=== PATIENT | male | born 1960 | race Caucasian/White ===

== ENCOUNTER 2018-04-04 16:28 | Emergency (ER) | payer SELFPAY ==
[2018-04-04] MEDS ORDERED: LORazepam 1 MG Tab PO ONE (16:34)
--- NOTE | 2018-04-04 16:46 | EDM.PDOC ---
ED HPI GENERAL MEDICAL PROBLEM - General Chief Complaint: Behavioral/Psych Stated Complaint: SUICIDIAL Time Seen by Provider: 04/04/18 16:31 - History of Present Illness INITIAL COMMENTS - FREE TEXT/NARRATIVE: HISTORY AND PHYSICAL: History of present illness: Patient 57-year-old white male with history of bipolar disorder presents with a concern of depressive episode he states she's felt suicidal he is agreeable to help he is here voluntarily denies any specific plan he denies any ingestion or any other concerns. Review of systems: As per history of present illness and below otherwise all systems reviewed and negative. Past medical history: As per history of present illness and as reviewed below otherwise noncontributory. Surgical history: As per history of present illness and as reviewed below otherwise noncontributory. Social history: No reported history of drug or alcohol abuse. Family history: As per history of present illness and as reviewed below otherwise noncontributory. Physical exam: HEENT: Atraumatic, normocephalic, pupils reactive, negative for conjunctival pallor or scleral icterus, mucous membranes moist, throat clear, neck supple, nontender, trachea midline. Lungs: Clear to auscultation, breath sounds equal bilaterally, chest nontender. Heart: S1S2, regular, negative for clicks, rubs, or JVD. Abdomen: Soft, nondistended, nontender. Negative for masses or hepatosplenomegaly. Negative for costovertebral tenderness. Pelvis: Stable nontender. Genitourinary: Deferred. Rectal: Deferred. Extremities: Atraumatic, negative for cords or calf pain. Neurovascular unremarkable. Neuro: Awake, alert, oriented. Cranial nerves II through XII unremarkable. Cerebellum unremarkable. Motor and sensory unremarkable throughout. Exam nonfocal. Diagnostics: Psychiatric panel Therapeutics: Ativan 1 mg by mouth Impression: #1 depressive episode #2 history of bipolar disorder Definitive disposition and diagnosis as appropriate pending reevaluation and review of above. - Related Data Allergies Allergy/AdvReac Type Severity Reaction Status Date / Time Lactose Allergy Vomiting Uncoded 04/04/18 16:31 Home Meds: Home Meds FLUoxetine HCl [Prozac] 20 mg PO DAILY 04/04/18 [History] QUEtiapine Fumarate [Quetiapine Fumarate] 500 mg PO BEDTIME 04/04/18 [History] lamoTRIgine 75 mg PO DAILY 04/04/18 [History] traZODone HCl [Trazodone HCl] 150 mg PO BEDTIME 04/04/18 [History] Past Medical History - Past Health History Medical/Surgical History: Denies Medical/Surgical History Musculoskeletal History: Reports: Fracture Psychiatric History: Reports: Anxiety, Bipolar, Depression - Infectious Disease History Infectious Disease History: Reports: None - Past Surgical History HEENT Surgical History: Reports: Naso-Sinus Surgery GI Surgical History: Reports: Hernia, Inguinal Musculoskeletal Surgical History: Reports: Other (See Below) Other Musculoskeletal Surgeries/Procedures:: ankle surgery Social & Family History - Family History Family Medical History: Noncontributory - Tobacco Use Smoking Status *Q: Current Every Day Smoker Years of Tobacco use: 10 Packs/Tins Daily: 0.5 - Caffeine Use Caffeine Use: Reports: Coffee - Recreational Drug Use Recreational Drug Use: No ED ROS GENERAL - Review of Systems Review Of Systems: ROS reveals no pertinent complaints other than HPI. ED EXAM, GENERAL - Physical Exam Exam: See Below (See dictation) Course - Vital Signs Last Recorded V/S: Last Vital Signs Temp 35.9 C 04/04/18 16:29 Pulse 93 04/04/18 16:29 Resp 20 04/04/18 16:29 BP 130/94 H 04/04/18 16:29 Pulse Ox 98 04/04/18 16:29 - Orders/Labs/Meds Orders: Active Orders 24 hr Category Date Time Status EKG Documentation Completion [RC] STAT Care 04/04/18 16:34 Active ACETAMINOPHEN [CHEM] Stat Lab 04/04/18 16:34 Ordered CBC WITH AUTO DIFF [HEME] Stat Lab 04/04/18 16:34 Ordered COMPREHENSIVE METABOLIC PN,CMP [CHEM] Stat Lab 04/04/18 16:34 Ordered DRUG SCREEN, URINE [URCHEM] Stat Lab 04/04/18 16:34 Ordered ETHANOL BLOOD MEDICAL [CHEM] Stat Lab 04/04/18 16:34 Ordered MAGNESIUM [CHEM] Stat Lab 04/04/18 16:34 Ordered SALICYLATE [CHEM] Stat Lab 04/04/18 16:34 Ordered TSH [CHEM] Stat Lab 04/04/18 16:34 Ordered UA W/MICROSCOPIC [URIN] Stat Lab 04/04/18 16:34 Ordered Meds: Medications Discontinued Medications Generic Name Dose Route Start Last Admin Trade Name Freq PRN Reason Stop Dose Admin Lorazepam 1 mg 04/04/18 16:34 Ativan PO 04/04/18 16:35 ONETIME ONE Departure - Departure Time of Disposition: 16:45 Disposition: DC/Tfer to Psych Hosp/Unit 65 Condition: Good Clinical Impression: Depression, History of bipolar disorder - Discharge Information Referrals: PCP,Unknown [Primary Care Provider] - - My Orders Last 24 Hours: My Active Orders 04/04/18 16:34 EKG Documentation Completion [RC] STAT ACETAMINOPHEN [CHEM] Stat CBC WITH AUTO DIFF [HEME] Stat COMPREHENSIVE METABOLIC PN,CMP [CHEM] Stat DRUG SCREEN, URINE [URCHEM] Stat ETHANOL BLOOD MEDICAL [CHEM] Stat MAGNESIUM [CHEM] Stat SALICYLATE [CHEM] Stat TSH [CHEM] Stat UA W/MICROSCOPIC [URIN] Stat - Assessment/Plan Last 24 Hours: My Active Orders 04/04/18 16:34 EKG Documentation Completion [RC] STAT ACETAMINOPHEN [CHEM] Stat CBC WITH AUTO DIFF [HEME] Stat COMPREHENSIVE METABOLIC PN,CMP [CHEM] Stat DRUG SCREEN, URINE [URCHEM] Stat ETHANOL BLOOD MEDICAL [CHEM] Stat MAGNESIUM [CHEM] Stat SALICYLATE [CHEM] Stat TSH [CHEM] Stat UA W/MICROSCOPIC [URIN] Stat
[2018-04-04 17:36] LABS: CHLORIDE,CL 105 mmol/L (98-107); SODIUM,NA 139 mmol/L (136-148)
== END 2018-04-04 22:55 ==
LOC: MW.ED 16:28
DX: F31.9 Bipolar disorder, unspecified (principal); F41.9 Anxiety disorder, unspecified; F17.210 Nicotine dependence, cigarettes, uncomplicated; Z79.899 Other long term (current) drug therapy
CPT/HCPCS: 36415; 80053; 80305; 81001; 83735; 84443; 85025; 93005; 99285; A9270; G0480

== ENCOUNTER 2018-04-16 18:35 | Emergency (ER) | payer SELFPAY ==
--- NOTE | 2018-04-16 19:16 | EDM.PDOC ---
ED HPI GENERAL MEDICAL PROBLEM - General Chief Complaint: Behavioral/Psych Stated Complaint: PT SUICIDAL Time Seen by Provider: 04/16/18 19:16 Source of Information: Reports: Patient History Limitations: Reports: No Limitations - History of Present Illness INITIAL COMMENTS - FREE TEXT/NARRATIVE: HISTORY AND PHYSICAL: History of present illness: Patient is a 57-year-old male here with suicidal thoughts. Patient came into the ED willingly by himself. He has a history of bipolar depression and has been admitted to both [facility] and [facility] for suicidal ideation this month. He states that he has been on a low and can't seem to get through it and suicide has been on his mind. He states today he had a handful of Seroquel as well as a knife and was either going to take the Seroquel or slit his wrists. He instead took 2 trazodone and came to the ED. He denies any history of any attempts but has had suicidal ideation multiple times in the past. He is taking his medications regularly but feels that they're not working for him currently. He states he is at a loss for what to do and feels like he needs to be in inpatient psych again. He is otherwise healthy without any significant past medical history. Denies drug or alcohol use. Review of systems: As per history of present illness and below otherwise all systems reviewed and negative. Past medical history: As per history of present illness and as reviewed below otherwise noncontributory. Surgical history: As per history of present illness and as reviewed below otherwise noncontributory. Social history: No reported history of drug or alcohol abuse. Family history: As per history of present illness and as reviewed below otherwise noncontributory. Physical exam: General: Patient sitting comfortably in no acute distress and nontoxic appearing HEENT: Atraumatic, normocephalic, pupils reactive, negative for conjunctival pallor or scleral icterus, mucous membranes moist, throat clear, neck supple, nontender, trachea midline. No meningeal signs. Lungs: Clear to auscultation, breath sounds equal bilaterally, chest nontender. Heart: S1S2, regular, negative for clicks, rubs, or overt murmur. Abdomen: Soft, nondistended, nontender. Negative for masses or hepatosplenomegaly. Negative for costovertebral tenderness. Pelvis: Stable nontender. Genitourinary: Deferred. Rectal: Deferred. Extremities: Atraumatic, negative for cords or calf pain. Neurovascular unremarkable. Neuro: Awake, alert, oriented. Cranial nerves II through XII unremarkable. Cerebellum unremarkable. Motor and sensory unremarkable throughout. Exam nonfocal. Notes: Discussed with Dr. Swartz, psychiatry at [facility], he has accepted patient for transfer for suicidal ideation with a plan via ground ambulance. Diagnostics: Behavioral health work up Therapeutics: None Prescriptions: None Impression: Suicidal ideation with a plan Plan: Discussed with Dr. Swartz, psychiatry at [facility], he has accepted patient for transfer for suicidal ideation with a plan via ground ambulance. Definitive disposition and diagnosis as appropriate pending reevaluation and review of above. - Related Data Allergies Allergy/AdvReac Type Severity Reaction Status Date / Time Lactose Allergy Vomiting Uncoded 04/16/18 19:00 Home Meds: Home Meds FLUoxetine HCl [Prozac] 20 mg PO DAILY 04/04/18 [History] QUEtiapine Fumarate [Quetiapine Fumarate] 500 mg PO BEDTIME 04/04/18 [History] lamoTRIgine 75 mg PO DAILY 04/04/18 [History] traZODone HCl [Trazodone HCl] 150 mg PO BEDTIME 04/04/18 [History] Past Medical History - Past Health History Medical/Surgical History: Denies Medical/Surgical History Musculoskeletal History: Reports: Fracture Psychiatric History: Reports: Anxiety, Bipolar, Depression - Infectious Disease History Infectious Disease History: Reports: None - Past Surgical History HEENT Surgical History: Reports: Naso-Sinus Surgery GI Surgical History: Reports: Hernia, Inguinal Musculoskeletal Surgical History: Reports: Other (See Below) Other Musculoskeletal Surgeries/Procedures:: ankle surgery Social & Family History - Family History Family Medical History: Noncontributory - Tobacco Use Smoking Status *Q: Current Every Day Smoker Years of Tobacco use: 30 Packs/Tins Daily: 1 - Caffeine Use Caffeine Use: Reports: Coffee - Recreational Drug Use Recreational Drug Use: No ED ROS GENERAL - Review of Systems Review Of Systems: ROS reveals no pertinent complaints other than HPI. - Physical Exam Exam: See Below (see dictation) Course - Vital Signs Last Recorded V/S: Last Vital Signs Temp 97.6 F 04/16/18 18:58 Pulse 88 04/16/18 18:58 Resp 18 04/16/18 18:58 BP 136/83 04/16/18 18:58 Pulse Ox 95 04/16/18 18:58 - Orders/Labs/Meds Orders: Active Orders 24 hr Category Date Time Status EKG Documentation Completion [RC] STAT Care 04/16/18 18:57 Active ACETAMINOPHEN [CHEM] Stat Lab 04/16/18 19:18 Received COMPREHENSIVE METABOLIC PN,CMP [CHEM] Stat Lab 04/16/18 19:18 Received DRUG SCREEN, URINE [URCHEM] Stat Lab 04/16/18 18:57 Ordered ETHANOL BLOOD MEDICAL [CHEM] Stat Lab 04/16/18 19:18 Received MAGNESIUM [CHEM] Stat Lab 04/16/18 19:18 Received SALICYLATE [CHEM] Stat Lab 04/16/18 19:18 Received TSH [CHEM] Stat Lab 04/16/18 19:18 Received UA W/MICROSCOPIC [URIN] Stat Lab 04/16/18 18:57 Ordered Labs: Laboratory Tests 04/16/18 Range/Units 19:18 WBC 5.40 (4.0-11.0) K/uL RBC 4.47 L (4.50-5.90) M/uL Hgb 13.1 (13.0-17.0) g/dL Hct 37.5 L (38.0-50.0) % MCV 83.9 (80.0-98.0) fL MCH 29.3 (27.0-32.0) pg MCHC 34.9 (31.0-37.0) g/dL RDW Std Deviation 40.8 (28.0-62.0) fl RDW Coeff of Jose Luis 14 (11.0-15.0) % Plt Count 165 (150-400) K/uL MPV 8.30 (7.40-12.00) fL Neut % (Auto) 64.5 (48.0-80.0) % Lymph % (Auto) 26.9 (16.0-40.0) % [place] % (Auto) 6.5 (0.0-15.0) % Eos % (Auto) 1.7 (0.0-7.0) % Baso % (Auto) 0.4 (0.0-1.5) % Neut # (Auto) 3.5 (1.4-5.7) K/uL Lymph # (Auto) 1.5 (0.6-2.4) K/uL [place] # (Auto) 0.4 (0.0-0.8) K/uL Eos # (Auto) 0.1 (0.0-0.7) K/uL Baso # (Auto) 0.0 (0.0-0.1) K/uL Nucleated RBC % 0.0 /100WBC Nucleated RBCs # 0 K/uL Departure - Departure Time of Disposition: 19:48 Disposition: DC/Tfer to Psych Hosp/Unit 65 Condition: Good Clinical Impression: Suicidal ideation - Discharge Information Referrals: PCP,None [Primary Care Provider] - Forms: ED Department Discharge - My Orders Last 24 Hours: My Active Orders 04/16/18 18:57 EKG Documentation Completion [RC] STAT DRUG SCREEN, URINE [URCHEM] Stat UA W/MICROSCOPIC [URIN] Stat 04/16/18 19:18 ACETAMINOPHEN [CHEM] Stat COMPREHENSIVE METABOLIC PN,CMP [CHEM] Stat ETHANOL BLOOD MEDICAL [CHEM] Stat MAGNESIUM [CHEM] Stat SALICYLATE [CHEM] Stat TSH [CHEM] Stat - Assessment/Plan Last 24 Hours: My Active Orders 04/16/18 18:57 EKG Documentation Completion [RC] STAT DRUG SCREEN, URINE [URCHEM] Stat UA W/MICROSCOPIC [URIN] Stat 04/16/18 19:18 ACETAMINOPHEN [CHEM] Stat COMPREHENSIVE METABOLIC PN,CMP [CHEM] Stat ETHANOL BLOOD MEDICAL [CHEM] Stat MAGNESIUM [CHEM] Stat SALICYLATE [CHEM] Stat TSH [CHEM] Stat
[2018-04-16 19:53] LABS: CHLORIDE,CL 107 mmol/L (98-107); SODIUM,NA 142 mmol/L (136-148)
[2018-04-16 19:57] LABS: ACETAMINOPHEN < 2.0 ug/mL
== END 2018-04-16 20:32 ==
LOC: MW.ED 18:35
DX: F32.9 Major depressive disorder, single episode, unspecified (principal); F41.9 Anxiety disorder, unspecified; F17.210 Nicotine dependence, cigarettes, uncomplicated; Z91.011 Allergy to milk products; Z79.899 Other long term (current) drug therapy
CPT/HCPCS: 36415; 80053; 80305; 81001; 83735; 84443; 85025; 93005; 99285; G0480; 99284

== ENCOUNTER 2018-07-18 07:12 | Emergency (ER) | payer MEDICAID, OTHER ==
--- NOTE | 2018-07-18 07:40 | EDM.PDOC ---
ED HPI GENERAL MEDICAL PROBLEM - General Chief Complaint: Behavioral/Psych Stated Complaint: AMB Time Seen by Provider: 07/18/18 07:14 - History of Present Illness INITIAL COMMENTS - FREE TEXT/NARRATIVE: HISTORY AND PHYSICAL: History of present illness: The patient is a 57-year-old male with a long-standing history of bipolar as well as depression and has had multiple ED visits and transfers to both [facility] as well as [place] the last one here was April 16, and he presents via EMS after he contacted them for being in a manic episode. The patient says that he started having this episode about 2 days ago and he was staying at a local place as well as working with [facility] and then he was asked to leave that location and he went and stayed with a friend. The friend then also asked him to leave, but he has no insight as to why that was, and he does when asked any of his other friends here locally for help so he was staying in his car. He says he's been fasting for 2 days because he thought that would be a healthy thing to do but he has been drinking water. He says he called the ambulance for help because he is in one of his episodes and he is always concerned about his constant suicidal thoughts. The patient says he always has suicidal thoughts that is not new or different and he does have a history of depression and ER visits for these depressive thoughts and suicidal thoughts. He does not have a plan and says that he does not have "the balls to do it" but then in the next sentence he will tell me how he has to get his suit out of the place he was staying so that he can go and apply for a new job. 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 He says he has no medical complaints such as headache chest pain shortness of breath abdominal pain nausea vomiting or diarrhea and no urinary complaints. He's had no trauma and she denies that he has tried to hurt himself in the last several days. He says he always has thoughts of it on and off and that always has concerned him and despite his multiple admissions and transfers for psychiatric care that has never changed. It is unclear why he is not following with [facility] anymore and will need to contact them to have a discussion with him. He has medications with him that he says he is compliant with and he has refills that he just obtained the end of June from a provider at [facility] in [place]. The patient on my evaluation of him does not express any suicidal plan nor any homicidal ideation and has intermittent insight into his disease process and then becomes more tangential. Please see below for more information from [facility] Review of systems: As per history of present illness and below otherwise all systems reviewed and negative. Past medical history: As per history of present illness and as reviewed below otherwise noncontributory. Surgical history: As per history of present illness and as reviewed below otherwise noncontributory. Social history: No reported history of drug or alcohol abuse. Family history: As per history of present illness and as reviewed below otherwise noncontributory. Physical exam: General: Well-developed well-nourished man who is nontoxic and is clean and not unkempt. Vital signs are noted by me. He does have tangential thought process and jumps from idea to idea in my conversation with him but he is able to be redirected and refocus. He does not have a depressed defect HEENT: Atraumatic, normocephalic, pupils reactive, negative for conjunctival pallor or scleral icterus, mucous membranes moist, throat clear, neck supple, nontender, trachea midline. Lungs: Clear to auscultation, breath sounds equal bilaterally, chest nontender. Heart: S1S2, regular rate and rhythm no overt murmurs Abdomen: Soft, nondistended, nontender. Negative for masses or hepatosplenomegaly. Negative for costovertebral tenderness. Pelvis: Stable nontender. Genitourinary: Deferred. Rectal: Deferred. Extremities: Atraumatic, negative for cords or calf pain. Neurovascular unremarkable. Full range of motion without defects or deficits Neuro: Awake, alert, oriented. Cranial nerves II through XII unremarkable. Cerebellum unremarkable. Motor and sensory unremarkable throughout. Exam nonfocal. Diagnostics: CBC CMP alcohol level TSH UA UDS Therapeutics: 0810: According to [facility], who knows this patient very well, he was living in the crisis unit but due to his behavior which consisted of yelling and nonadherence to crisis unit rules he was told that he could not live there anymore, which correlates with the patient's story. According to them he has not been able to live there for the last 2 months which does not correlate with the patient's timeframe so it is unclear if he has been staying with friends or where he has been living. The patient did have an appointment yesterday that he messed for his medication reevaluation. He was seen at the clinic on Saturday with the provider there but he was acting erratically and yelling at the provider and police were called to escort him out of the building. At that point they did not feel that he was suicidal homicidal or a threat so they did not send him here to the ED. He again came back to the clinic on Saturday and was acting erratically again yelling and was again asked to leave and then subsequently missed his appointment yesterday. According to the records the patient had been on Seroquel 500 mg at nighttime and had asked the provider to get him off of that medication and he was weaned off but in their opinion he may need to go back on that medication and that was a discussion that they were going to have but he did not allow those appointments to proceed this week on Saturday and Saturday to rediscuss his meds. I will discuss with him these events and ask him whether or not he can return to [place] today to have a calm discussion about adjusting his medications. They said that they will be willing to see him and discuss with the provider restarting his Seroquel or another medication to assist with this manic phase if he would be willing to be cooperative. I had a discussion with the patient about returning to [place] to rediscuss his medications as an option here and he is agreeable. He says that he was very sarcastic on his prior appointments and he didn't mean to be erratic or blackout and that he is willing to try this. At this point he is not suicidal or homicidal and I think that this is a good option as he probably needs to have his meds adjusted and he is agreeable at this point. Impression: Bipolar disorder with history of same, manic episode subacute Definitive disposition and diagnosis as appropriate pending reevaluation and review of above. - Related Data Allergies Allergy/AdvReac Type Severity Reaction Status Date / Time Lactose Allergy Vomiting Uncoded 07/18/18 07:29 Home Meds: Home Meds FLUoxetine HCl [Prozac] 20 mg PO DAILY 04/04/18 [History] lamoTRIgine 75 mg PO DAILY 04/04/18 [History] traZODone HCl [Trazodone HCl] 150 mg PO BEDTIME 04/04/18 [History] Past Medical History - Past Health History Medical/Surgical History: Denies Medical/Surgical History Musculoskeletal History: Reports: Fracture Psychiatric History: Reports: Anxiety, Bipolar, Depression - Infectious Disease History Infectious Disease History: Reports: None - Past Surgical History HEENT Surgical History: Reports: Naso-Sinus Surgery GI Surgical History: Reports: Hernia, Inguinal Musculoskeletal Surgical History: Reports: Other (See Below) Other Musculoskeletal Surgeries/Procedures:: ankle surgery Social & Family History - Family History Family Medical History: Noncontributory - Caffeine Use Caffeine Use: Reports: Coffee ED ROS GENERAL - Review of Systems Review Of Systems: ROS reveals no pertinent complaints other than HPI. ED EXAM, GENERAL - Physical Exam Exam: See Below (see Dictation) Course - Vital Signs Last Recorded V/S: Last Vital Signs Temp 36.9 C 07/18/18 07:16 Pulse 74 07/18/18 07:16 Resp 18 07/18/18 07:16 BP 142/106 H 07/18/18 07:16 Pulse Ox 95 07/18/18 07:16 - Orders/Labs/Meds Orders: Active Orders 24 hr Category Date Time Status Blood Glucose Check, Bedside [RC] ONETIME Care 07/18/18 07:25 Active COMPREHENSIVE METABOLIC PN,CMP [CHEM] Stat Lab 07/18/18 07:43 Received DRUG SCREEN, URINE [URCHEM] Stat Lab 07/18/18 08:14 Received ETHANOL BLOOD MEDICAL [CHEM] Stat Lab 07/18/18 07:43 Received TSH [CHEM] Stat Lab 07/18/18 07:43 Received UA RFX YASMIN AND CULT IF INDIC [URIN] Stat Lab 07/18/18 08:10 Received Labs: Laboratory Tests 07/18/18 Range/Units 07:43 WBC 7.85 (4.0-11.0) K/uL RBC 5.37 (4.50-5.90) M/uL Hgb 16.1 (13.0-17.0) g/dL Hct 46.1 (38.0-50.0) % MCV 85.8 (80.0-98.0) fL MCH 30.0 (27.0-32.0) pg MCHC 34.9 (31.0-37.0) g/dL RDW Std Deviation 41.0 (28.0-62.0) fl RDW Coeff of Jose Luis 13 (11.0-15.0) % Plt Count 211 (150-400) K/uL MPV 8.60 (7.40-12.00) fL Neut % (Auto) 78.4 (48.0-80.0) % Lymph % (Auto) 15.2 L (16.0-40.0) % Eddy % (Auto) 5.9 (0.0-15.0) % Eos % (Auto) 0.4 (0.0-7.0) % Baso % (Auto) 0.1 (0.0-1.5) % Neut # (Auto) 6.2 H (1.4-5.7) K/uL Lymph # (Auto) 1.2 (0.6-2.4) K/uL Eddy # (Auto) 0.5 (0.0-0.8) K/uL Eos # (Auto) 0.0 (0.0-0.7) K/uL Baso # (Auto) 0.0 (0.0-0.1) K/uL Nucleated RBC % 0.0 /100WBC Nucleated RBCs # 0 K/uL Departure - Departure Time of Disposition: 08:26 Disposition: Home, Self-Care 01 Condition: Good Clinical Impression: Bipolar disorder, manic, moderate - Discharge Information Referrals: PCP,None [Primary Care Provider] - Forms: ED Department Discharge Additional Instructions: The following information is given to patients seen in the emergency department who are being discharged to home. This information is to outline your options for follow-up care. We provide all patients seen in our emergency department with a follow-up referral. The need for follow-up, as well as the timing and circumstances, are variable depending upon the specifics of your emergency department visit. If you don't have a primary care physician on staff, we will provide you with a referral. We always advise you to contact your personal physician following an emergency department visit to inform them of the circumstance of the visit and for follow-up with them and/or the need for any referrals to a consulting specialist. The emergency department will also refer you to a specialist when appropriate. This referral assures that you have the opportunity for followup care with a specialist. All of these measure are taken in an effort to provide you with optimal care, which includes your followup. Under all circumstances we always encourage you to contact your private physician who remains a resource for coordinating your care. When calling for followup care, please make the office aware that this follow-up is from your recent emergency room visit. If for any reason you are refused follow-up, please contact the [facility] emergency department at and ask to speak to the emergency department charge nurse. [facility] Primary care- [place] [address] Please go to [facility] as we discussed to discuss her medications and have adjustments made to help you get through this episode. Please start eating meals and pushing hydration. Return to ER as needed and as discussed - My Orders Last 24 Hours: My Active Orders 07/18/18 07:25 Blood Glucose Check, Bedside [RC] ONETIME 07/18/18 07:43 COMPREHENSIVE METABOLIC PN,CMP [CHEM] Stat ETHANOL BLOOD MEDICAL [CHEM] Stat TSH [CHEM] Stat 07/18/18 08:10 UA RFX YASMIN AND CULT IF INDIC [URIN] Stat 07/18/18 08:14 DRUG SCREEN, URINE [URCHEM] Stat - Assessment/Plan Last 24 Hours: My Active Orders 07/18/18 07:25 Blood Glucose Check, Bedside [RC] ONETIME 07/18/18 07:43 COMPREHENSIVE METABOLIC PN,CMP [CHEM] Stat ETHANOL BLOOD MEDICAL [CHEM] Stat TSH [CHEM] Stat 07/18/18 08:10 UA RFX YASMIN AND CULT IF INDIC [URIN] Stat 07/18/18 08:14 DRUG SCREEN, URINE [URCHEM] Stat
[2018-07-18 08:22] LABS: CHLORIDE,CL 101 mmol/L (98-107); SODIUM,NA 136 mmol/L (136-148)
== END 2018-07-18 09:33 | disposition home or self-care (01) ==
LOC: MW.ED 07:12
DX: F31.9 Bipolar disorder, unspecified (principal); F41.9 Anxiety disorder, unspecified; Z91.011 Allergy to milk products; Z79.899 Other long term (current) drug therapy
CPT/HCPCS: 36415; 80053; 80305; 81003; 84443; 85025; 99284; G0480

== ENCOUNTER 2018-11-13 14:56 | Emergency (ER) | payer MEDICAID, OTHER ==
--- NOTE | 2018-11-13 15:05 | EDM.PDOC ---
ED HPI GENERAL MEDICAL PROBLEM - General Chief Complaint: Lower Extremity Injury/Pain Stated Complaint: RIGHT FOOT PAIN Time Seen by Provider: 11/13/18 15:04 Source of Information: Reports: Patient History Limitations: Reports: No Limitations - History of Present Illness INITIAL COMMENTS - FREE TEXT/NARRATIVE: HISTORY AND PHYSICAL: History of present illness: Patient is a 57-year-old male presents to the ED with complaint of right foot. He states that he dropped a piece of plywood on his foot about 30 minutes prior to arrival to the ED. It is having to walk on his heal and cannot put full weight on the foot. He denies proximal pain or injury Review of systems: As per history of present illness and below otherwise all systems reviewed and negative. Past medical history: As per history of present illness and as reviewed below otherwise noncontributory. Surgical history: As per history of present illness and as reviewed below otherwise noncontributory. Social history: No reported history of drug or alcohol abuse. Family history: As per history of present illness and as reviewed below otherwise noncontributory. Physical exam: General: Patient sitting comfortably in no acute distress and nontoxic appearing HEENT: Atraumatic, normocephalic, pupils reactive, negative for conjunctival pallor or scleral icterus, mucous membranes moist, throat clear, neck supple, nontender, trachea midline. No meningeal signs. Lungs: Clear to auscultation, breath sounds equal bilaterally, chest nontender. Heart: S1S2, regular, negative for clicks, rubs, or overt murmur. Abdomen: Soft, nondistended, nontender. Negative for masses or hepatosplenomegaly. Negative for costovertebral tenderness. No rigidity, rebound , guarding. Pelvis: Stable nontender. Genitourinary: Deferred. Rectal: Deferred. Extremities: There is swelling and ecchymosis to the distal aspect of the MTPs of the right foot. No proximal pain palpation. CMS intact, skin intact. negative for cords or calf pain. Neurovascular unremarkable. Neuro: Awake, alert, oriented. Cranial nerves II through XII unremarkable. Cerebellum unremarkable. Motor and sensory unremarkable throughout. Exam nonfocal. Notes: Discussed with Dr. Talley who will see the patient in his clinic tomorrow Diagnostics: X-ray right foot Therapeutics: 60 mg Toradol IM Post mold splint and crutches Prescriptions: Impression: Right foot injury Plan 1. Ice, elevate, and motrin or tylenol as needed 2. Follow up with podiatry at schedule appointment tomorrow 3. Return to ED as needed as discussed Definitive disposition and diagnosis as appropriate pending reevaluation and review of above. Right Foot Pain Score (Numeric/FACES): 6 - Related Data Allergies Allergy/AdvReac Type Severity Reaction Status Date / Time Lactose Allergy Vomiting Uncoded 11/13/18 15:06 Home Meds: Home Meds lamoTRIgine 75 mg PO DAILY 04/04/18 [History] traZODone HCl [Trazodone HCl] 150 mg PO BEDTIME 04/04/18 [History] Past Medical History - Past Health History Medical/Surgical History: Denies Medical/Surgical History Musculoskeletal History: Reports: Fracture Psychiatric History: Reports: Anxiety, Bipolar, Depression - Infectious Disease History Infectious Disease History: Reports: None - Past Surgical History HEENT Surgical History: Reports: Naso-Sinus Surgery GI Surgical History: Reports: Hernia, Inguinal Musculoskeletal Surgical History: Reports: Other (See Below) Other Musculoskeletal Surgeries/Procedures:: ankle surgery Social & Family History - Family History Family Medical History: Noncontributory - Caffeine Use Caffeine Use: Reports: Coffee Review of Systems - Review of Systems Review Of Systems: ROS reveals no pertinent complaints other than HPI. ED EXAM, GENERAL - Physical Exam Exam: See Below (See dictation) Course - Vital Signs Last Recorded V/S: Last Vital Signs Temp 97.7 F 11/13/18 15:04 Pulse 88 11/13/18 15:04 Resp 18 11/13/18 15:04 BP 126/82 11/13/18 15:04 Pulse Ox 97 11/13/18 15:04 - Orders/Labs/Meds Meds: Medications Discontinued Medications Generic Name Dose Route Start Last Admin Trade Name Freq PRN Reason Stop Dose Admin Ketorolac Tromethamine 60 mg 11/13/18 15:14 11/13/18 15:51 Toradol IM 11/13/18 15:15 60 mg ONETIME ONE Administration Departure - Departure Time of Disposition: 17:05 Disposition: Home, Self-Care 01 Condition: Good Clinical Impression: Right foot injury - Discharge Information Referrals: Yeison Ngo DPM [Ordering Only Provider] - 11/24/18 10:45 am Forms: ED Department Discharge Additional Instructions: The following information is given to patients seen in the emergency department who are being discharged to home. This information is to outline your options for follow-up care. We provide all patients seen in our emergency department with a follow-up referral. The need for follow-up, as well as the timing and circumstances, are variable depending upon the specifics of your emergency department visit. If you don't have a primary care physician on staff, we will provide you with a referral. We always advise you to contact your personal physician following an emergency department visit to inform them of the circumstance of the visit and for follow-up with them and/or the need for any referrals to a consulting specialist. The emergency department will also refer you to a specialist when appropriate. This referral assures that you have the opportunity for follow-up care with a specialist. All of these measure are taken in an effort to provide you with optimal care, which includes your follow-up. Under all circumstances we always encourage you to contact your private physician who remains a resource for coordinating your care. When calling for follow-up care, please make the office aware that this follow-up is from your recent emergency room visit. If for any reason you are refused follow-up, please contact the [facility] Emergency Department at and asked to speak to the emergency department charge nurse. [facility] [address] [place] [id number] [facility] [address] [place] [id number] [facility] [address] [place] [address] 1. Ice, elevate, and motrin or tylenol as needed 2. Follow up with podiatry at schedule appointment tomorrow. 8am at the [address] [facility] with Dr. Talley. [address] [facility] 3. Return to ED as needed as discussed
[2018-11-13] MEDS ORDERED: Ketorolac 60 MG/2 ML SDV IM ONE (15:14)
--- NOTE | 2018-11-13 16:10 | CR ---
INDICATION: Foot pain status post dropping plywood on it today TECHNIQUE: Foot radiograph 2 views right COMPARISON: 01/31/2014 FINDINGS: Bone: Transverse fractures of the 1st, 2nd, 3rd, and 4th proximal phalanges are present. The fracture fragment of the 4th proximal phalanx is displaced laterally by 5 mm and foreshortened by 8 mm. Metallic plate ORIF of the ankle is partially visualized. Joint: The visualized hindfoot, midfoot, and forefoot joints are unremarkable in appearance. No significant ankle effusion is seen. Soft tissue: Mild soft tissue swelling seen along the dorsum of the forefoot. No radiopaque foreign bodies are seen. IMPRESSION: 1. Transverse fractures of the 1st, 2nd, 3rd, and 4th proximal phalanges are present. The fracture fragment of the 4th proximal phalanx is displaced laterally by 5 mm and foreshortened by 8 mm. Dictated by Jalil [place] MD @ 11/13/2018 4:03:52 PM Dictated by: Jalil [place] MD @ 11/13/2018 16:08:09 (Electronically Signed)
--- NOTE | 2018-11-13 17:02 | CR ---
Indication: Fracture post reduction Technique: Right foot 2 views Comparison: November 13, 2018 at 1512 hours Findings/Impression: Again demonstrated are fractures in the proximal phalanges of the right 1st, 2nd, 3rd, and 4th digits. The displaced fracture in the 4th digit is unchanged in position. Remainder of the fractures are nondisplaced. No new abnormality. Overall, no change from the earlier exam. Dictated by Rufus Reagan MD @ Nov 13 2018 4:57PM Signed by Dr. Rufus Reagan @ Nov 13 2018 5:01PM
== END 2018-11-13 17:44 | disposition home or self-care (01) ==
LOC: MW.ED 14:56
DX: S90.31XA Contusion of right foot, initial encounter (principal); F31.9 Bipolar disorder, unspecified; F41.9 Anxiety disorder, unspecified; Z91.011 Allergy to milk products; Z79.899 Other long term (current) drug therapy; W20.8XXA Other cause of strike by thrown, projected or falling object, initial encounter
CPT/HCPCS: 29515; 73620; 96372; 99283; J1885

== ENCOUNTER 2018-11-18 14:24 | Emergency (ER) | payer OTHER, MEDICAID ==
--- NOTE | 2018-11-18 15:54 | EDM.PDOC ---
ED HPI GENERAL MEDICAL PROBLEM - General Chief Complaint: Wound Recheck Stated Complaint: RIGHT FOOT Time Seen by Provider: 11/18/18 15:44 - History of Present Illness INITIAL COMMENTS - FREE TEXT/NARRATIVE: HISTORY AND PHYSICAL: History of present illness: Patient's 57-year-old white male who was seen recently for multiple fractures of his who presents for reapplication of the posterior mold patient states he was unable to follow-up with his scheduled appointment with podiatry but will do this within 24 hours. He has no other complaints Review of systems: As per history of present illness and below otherwise all systems reviewed and negative. Past medical history: As per history of present illness and as reviewed below otherwise noncontributory. Surgical history: As per history of present illness and as reviewed below otherwise noncontributory. Social history: No reported history of drug or alcohol abuse. Family history: As per history of present illness and as reviewed below otherwise noncontributory. Physical exam: HEENT: Atraumatic, normocephalic, pupils reactive, negative for conjunctival pallor or scleral icterus, mucous membranes moist, throat clear, neck supple, nontender, trachea midline. Lungs: Clear to auscultation, breath sounds equal bilaterally, chest nontender. Heart: S1S2, regular, negative for clicks, rubs, or JVD. Abdomen: Soft, nondistended, nontender. Negative for masses or hepatosplenomegaly. Negative for costovertebral tenderness. Pelvis: Stable nontender. Genitourinary: Deferred. Rectal: Deferred. Extremities: Posterior mold in place loosely secured with Simone wrap CMS neurovascular exam unremarkable. Neuro: Awake, alert, oriented. Cranial nerves II through XII unremarkable. Cerebellum unremarkable. Motor and sensory unremarkable throughout. Exam nonfocal. Diagnostics: None Therapeutics: Posterior mold was reapplied lower extremity Impression: #1 multiple fractures right foot Definitive disposition and diagnosis as appropriate pending reevaluation and review of above. Right 1st, 2nd, 3rd, 4th toes Pain Score (Numeric/FACES): 4 - Related Data Allergies Allergy/AdvReac Type Severity Reaction Status Date / Time Lactose Allergy Vomiting Uncoded 11/18/18 14:44 Home Meds: Home Meds lamoTRIgine PO DAILY 04/04/18 [History] traZODone HCl [Trazodone HCl] PO BEDTIME 04/04/18 [History] QUEtiapine [SEROquel] PO DAILY 11/18/18 [History] Past Medical History - Past Health History Medical/Surgical History: Denies Medical/Surgical History Musculoskeletal History: Reports: Fracture Psychiatric History: Reports: Anxiety, Bipolar, Depression - Infectious Disease History Infectious Disease History: Reports: None - Past Surgical History HEENT Surgical History: Reports: Naso-Sinus Surgery GI Surgical History: Reports: Hernia, Inguinal Musculoskeletal Surgical History: Reports: Other (See Below) Other Musculoskeletal Surgeries/Procedures:: ankle surgery, L 5th finger Social & Family History - Family History Family Medical History: Noncontributory - Tobacco Use Smoking Status *Q: Current Every Day Smoker Years of Tobacco use: 20 Packs/Tins Daily: 0.5 - Caffeine Use Caffeine Use: Reports: Coffee - Recreational Drug Use Recreational Drug Use: No ED ROS GENERAL - Review of Systems Review Of Systems: ROS reveals no pertinent complaints other than HPI. ED EXAM, GENERAL - Physical Exam Exam: See Below (See dictation) Course - Vital Signs Last Recorded V/S: Last Vital Signs Temp 36.7 C 11/18/18 14:40 Pulse 114 H 11/18/18 14:40 Resp 18 11/18/18 14:40 BP 137/93 H 11/18/18 14:40 Pulse Ox 97 11/18/18 14:40 Departure - Departure Time of Disposition: 15:53 Disposition: Home, Self-Care 01 Condition: Good Clinical Impression: Foot fracture - Discharge Information Referrals: PCP,None [Primary Care Provider] - Additional Instructions: The following information is given to patients seen in the emergency department who are being discharged to home. This information is to outline your options for follow-up care. We provide all patients seen in our emergency department with a follow-up referral. The need for follow-up, as well as the timing and circumstances, are variable depending upon the specifics of your emergency department visit. If you don't have a primary care physician on staff, we will provide you with a referral. We always advise you to contact your personal physician following an emergency department visit to inform them of the circumstance of the visit and for follow-up with them and/or the need for any referrals to a consulting specialist. The emergency department will also refer you to a specialist when appropriate. This referral assures that you have the opportunity for followup care with a specialist. All of these measure are taken in an effort to provide you with optimal care, which includes your followup. Under all circumstances we always encourage you to contact your private physician who remains a resource for coordinating your care. When calling for followup care, please make the office aware that this follow-up is from your recent emergency room visit. If for any reason you are refused follow-up, please contact the [facility] emergency department at and asked to speak to the emergency department charge nurse. Posterior mold crutches as directed follow-up podiatry as discussed return as needed as discussed
== END 2018-11-18 16:21 | disposition home or self-care (01) ==
LOC: MW.ED 14:24
DX: S92.901D Unspecified fracture of right foot, subsequent encounter for fracture with routine healing (principal); F41.9 Anxiety disorder, unspecified; F32.9 Major depressive disorder, single episode, unspecified; F17.210 Nicotine dependence, cigarettes, uncomplicated; Z79.899 Other long term (current) drug therapy; Z91.011 Allergy to milk products; X58.XXXD Exposure to other specified factors, subsequent encounter
CPT/HCPCS: 99283

== ENCOUNTER 2019-07-07 19:30 | Emergency (ER) | payer MEDICAID, OTHER ==
[2019-07-07] MEDS ORDERED: Sodium Chloride 0.9% 1,000 ML IV ONE (19:33)
[2019-07-07] MEDS ORDERED: predniSONE 20 MG Tab PO ONE (19:38)
--- NOTE | 2019-07-07 19:38 | EDM.PDOC ---
ED HPI GENERAL MEDICAL PROBLEM - General Stated Complaint: EMS ARRIVAL - POSSIBLE STROKE Time Seen by Provider: 07/07/19 19:34 Source of Information: Reports: Patient, EMS History Limitations: Reports: No Limitations - History of Present Illness INITIAL COMMENTS - FREE TEXT/NARRATIVE: Patient is a 58-year-old male with past medical history of bipolar disorder presenting with a chief complaint of left-sided facial weakness. Patient states that his symptoms started Saturday afternoon. Patient states that he noticed he was having some weakness of the left side of his face and was having difficult time spitting. Patient reports subjective feelings of numbness around the corners of his mouth on the left side. In addition, the patient states he is unable to fully close his left eye. Patient denies any other weakness. Patient denies any difficulty walking. Patient has no prior history of similar symptoms. Patient does state he has been feeling dizzy for the past few days as well describes the dizziness as a lightheadedness particularly worse when he moves from a seated to standing position. Pmhx: Per HPI and chart Pshx: None Family Hx: noncontributory Smoking history? no Etoh use? none Drug use? none In addition to that documented in the HPI above, the additional ROS was obtained : Constitutional: Denies fevers or chills Eyes: Denies vision changes ENMT: Denies sore throat CV: Denies chest pain Resp: Denies SOB GI: Denies vomiting or diarrhea : Denies painful urination MSK: Denies recent trauma Skin: Denies new rashes Neuro: Per HPI Endocrine: Denies unexpected weight loss Heme: Denies bleeding disorders I have reviewed the triage vital signs Const: Well nourished, well developed, appears stated age Eyes: PERRL, no conjunctival injection HENT: NCAT, Neck supple without meningismus CV: RRR, Warm, well-perfused extremities RESP: CTAB, Unlabored respiratory effort GI: soft, non-tender, non-distended, no masses MSK: No gross deformities appreciated Skin: Warm, dry. No rashes Neuro: Patient is alert and oriented x3. Patient demonstrates left-sided facial weakness in the VII2-VII3 distribution with involvement of his left eye. Patient is unable to fully close his left eye. Patient does have some weakness in the left forehead of the facial nerve as well. Bilateral upper and lower motor are 5 out of 5. Patient has no pronator drift. The remainder of cranial nerves are intact including sensory of the face. [id number] intact. 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 Patient's neurologic exam is otherwise intact and there is no evidence of central EMERGENCY RESPONSE OFFICER lesion. An EKG and fingerstick were performed for evaluation of dizziness which seems to be consistent with orthostatic hypotension. Patient given IV fluids with improvement of symptoms for the dizziness. There is no evidence that the patient has a cerebellar lesion. Patient given prednisone and instructed to follow-up as an outpatient. Patient given instructions for care of his eye and that he may need to follow-up with an twisting frame operator should symptoms become more severe. Patient instructed on using lubricating drops and taping his eye closed at night. All questions were addressed and answered. Patient agrees with plan. neck Pain Score (Numeric/FACES): 6 - Related Data Allergies Allergy/AdvReac Type Severity Reaction Status Date / Time Lactose Allergy Vomiting Uncoded 07/07/19 19:43 Home Meds: Home Meds lamoTRIgine PO DAILY 04/04/18 [History] traZODone HCl [Trazodone HCl] PO BEDTIME 04/04/18 [History] QUEtiapine [SEROquel] PO DAILY 11/18/18 [History] predniSONE [Prednisone] 60 mg PO DAILY #18 tablet 07/07/19 [Rx] Past Medical History - Past Health History Medical/Surgical History: Denies Medical/Surgical History Musculoskeletal History: Reports: Fracture Psychiatric History: Reports: Anxiety, Bipolar, Depression - Infectious Disease History Infectious Disease History: Reports: None - Past Surgical History HEENT Surgical History: Reports: Naso-Sinus Surgery GI Surgical History: Reports: Hernia, Inguinal Musculoskeletal Surgical History: Reports: Other (See Below) Other Musculoskeletal Surgeries/Procedures:: ankle surgery, L 5th finger Social & Family History - Family History Family Medical History: Noncontributory - Caffeine Use Caffeine Use: Reports: Coffee ED ROS GENERAL - Review of Systems Review Of Systems: See Below ED EXAM, NEURO - Physical Exam Exam: See Below Course - Vital Signs Last Recorded V/S: Last Vital Signs Temp 36.3 C 07/07/19 19:30 Pulse 98 07/07/19 20:00 Resp 18 07/07/19 20:00 BP 130/85 07/07/19 20:00 Pulse Ox 95 07/07/19 20:00 - Orders/Labs/Meds Orders: Active Orders 24 hr Category Date Time Status EKG Documentation Completion [RC] STAT Care 07/07/19 19:33 Active Meds: Medications Discontinued Medications Generic Name Dose Route Start Last Admin Trade Name Nataly PRN Reason Stop Dose Admin Sodium Chloride 1,000 mls @ 1,000 mls/hr 07/07/19 19:33 07/07/19 19:50 Normal Saline IV 07/07/19 20:32 1,000 mls/hr .Bolus ONE Administration Prednisone 60 mg 07/07/19 19:38 07/07/19 19:45 Prednisone PO 07/07/19 19:39 60 mg ONETIME ONE Administration Departure - Departure Time of Disposition: 20:30 Disposition: Home, Self-Care 01 Clinical Impression: Nowak's palsy - Discharge Information Prescriptions: predniSONE [Prednisone] 60 mg PO DAILY #18 tablet Instructions: Nowak Palsy, Adult Referrals: Avtar Silva MD [Primary Care Provider] - Forms: ED Department Discharge Additional Instructions: The following information is given to patients seen in the emergency department who are being discharged to home. This information is to outline your options for follow-up care. We provide all patients seen in our emergency department with a follow-up referral. The need for follow-up, as well as the timing and circumstances, are variable depending upon the specifics of your emergency department visit. If you don't have a primary care physician on staff, we will provide you with a referral. We always advise you to contact your personal physician following an emergency department visit to inform them of the circumstance of the visit and for follow-up with them and/or the need for any referrals to a consulting specialist. The emergency department will also refer you to a specialist when appropriate. This referral assures that you have the opportunity for follow-up care with a specialist. All of these measure are taken in an effort to provide you with optimal care, which includes your follow-up. Under all circumstances we always encourage you to contact your private physician who remains a resource for coordinating your care. When calling for follow-up care, please make the office aware that this follow-up is from your recent emergency room visit. If for any reason you are refused follow-up, please contact the [facility] Emergency Department at and asked to speak to the emergency department charge nurse. Sepsis Event Note - Focused Exam Vital Signs: Vital Signs Temp Pulse Resp BP Pulse Ox 07/07/19 20:00 98 18 130/85 95 07/07/19 19:30 36.3 C 105 H 20 178/112 H 94 L Date Exam was Performed: 07/07/19 Time Exam was Performed: 21:05 - My Orders Last 24 Hours: My Active Orders 07/07/19 19:33 EKG Documentation Completion [RC] STAT - Assessment/Plan Last 24 Hours: My Active Orders 07/07/19 19:33 EKG Documentation Completion [RC] STAT
[2019-07-07] MEDS ORDERED: Acetaminophen 500 MG Tab PO ONE (21:12)
[2019-07-07] MEDS ORDERED: Acetaminophen 500 MG Tab ONE (21:13)
== END 2019-07-07 21:21 | disposition home or self-care (01) ==
LOC: MW.ED 19:30
DX: G51.0 Bell's palsy (principal); F31.9 Bipolar disorder, unspecified; F41.9 Anxiety disorder, unspecified; Z91.09 Other allergy status, other than to drugs and biological substances; Z79.899 Other long term (current) drug therapy
CPT/HCPCS: 93005; 96360; 99284; A9270; J7030

== ENCOUNTER 2019-09-23 06:52 | Day surgery (SDC) | payer MEDICARE, MEDICAID ==
[~2019-09-23 06:52] MED LIST: Lactated Ringers 1,000 ML IV SCH
[2019-09-23] MEDS ORDERED: Lidocaine 2% 5 ML SDV ONE (07:24)
[2019-09-23] MEDS ORDERED: Propofol 200 MG/20 ML SDV ONE (07:24)
--- NOTE | 2019-09-23 08:19 | PCM.PREANE ---
Preanesthetic Assessment - Anesthesia/Transfusion/Family Hx Anesthesia History: Prior Anesthesia Without Reaction Other Type of Anesthesia Reaction Comment: Denies any known problems with anesthesia, very little prior Family History of Anesthesia Reaction: No Transfusion History: No Prior Transfusion(s) - Review of Systems General: No Symptoms Pulmonary: No Symptoms Cardiovascular: No Symptoms Gastrointestinal: No Symptoms Neurological: No Symptoms Other: Reports: None - Physical Assessment NPO Status Date: 09/22/19 Vital Signs: Last Vital Signs Temp 97.7 F 09/23/19 07:30 Pulse 86 09/23/19 07:30 Resp 15 09/23/19 07:30 BP 128/93 H 09/23/19 07:30 Pulse Ox 96 09/23/19 07:30 Height: 5 ft 10.5 in Weight: 107.955 kg ASA Class: 2 Mental Status: Alert & Oriented x3 Airway Class: Mallampati = 2 Dentition: Reports: Normal Dentition ROM/Head Extension: Full Lungs: Clear to Auscultation, Normal Respiratory Effort Cardiovascular: Regular Rate, Regular Rhythm - Allergies Allergies/Adverse Reactions: Allergies Allergy/AdvReac Type Severity Reaction Status Date / Time Lactose Allergy Diarrhea Uncoded 09/17/19 10:54 - Blood Blood Available: No - Anesthesia Plan Pre-Op Medication Ordered: None - Acknowledgements Anesthesia Type Planned: General Anesthesia (tiva) Pt an Appropriate Candidate for the Planned Anesthesia: Yes Alternatives and Risks of Anesthesia Discussed w Pt/Guardian: Yes Pt/Guardian Understands and Agrees with Anesthesia Plan: Yes PreAnesthesia Questionnaire - Past Health History Medical/Surgical History: Denies Medical/Surgical History HEENT History: Reports: Other (See Below) Other HEENT History: readers Cardiovascular History: Reports: None Respiratory History: Reports: None Gastrointestinal History: Reports: None Genitourinary History: Reports: None Musculoskeletal History: Reports: Fracture Neurological History: Reports: Other (See Below) Other Neuro History: bells palsy Psychiatric History: Reports: Anxiety, Bipolar, Depression Endocrine/Metabolic History: Reports: Obesity/BMI 30+ Other Endocrine/Metabolic History: (taking metformin for weight loss) Hematologic History: Reports: None Immunologic History: Reports: None Oncologic (Cancer) History: Reports: None Dermatologic History: Reports: None - Infectious Disease History Infectious Disease History: Reports: None - Past Surgical History Head Surgeries/Procedures: Reports: None HEENT Surgical History: Reports: Naso-Sinus Surgery Other HEENT Surgeries/Procedures: hx removal of nasal cyst Cardiovascular Surgical History: Reports: None Respiratory Surgical History: Reports: None GI Surgical History: Reports: Colonoscopy, Hernia, Inguinal Male Surgical History: Reports: None Endocrine Surgical History: Reports: None Neurological Surgical History: Reports: None Musculoskeletal Surgical History: Reports: ORIF, Other (See Below) Other Musculoskeletal Surgeries/Procedures:: rt ankle surgery, L 5th pinky finger, fx toes-rt foot Oncologic Surgical History: Reports: None Dermatological Surgical History: Reports: None - SUBSTANCE USE Smoking Status *Q: Light Tobacco Smoker Tobacco Use Within Last Twelve Months: Cigarettes Recreational Drug Type: Reports: Marijuana/Hashish Recreational Drug Last Use: 09/16/19 - HOME MEDS Home Medications: Home Meds Ascorbate Calcium/Bioflavonoid [Shanon-C 500 MG] 1 tab PO DAILY 09/17/19 [History] Cider Vinegar [Apple Cider Vinegar] 1 tab PO DAILY 09/17/19 [History] Krill/Catarina-3/Dha/Epa/Lipids [Krill Oil 350 mg Softgel] 1 tab PO DAILY 09/17/19 [History] Multivitamin [Multivitamins] 1 tab PO DAILY 09/17/19 [History] Nicotine [Nicotine Patch] 1 patch TRDERM DAILY 09/17/19 [History] QUEtiapine Fumarate [Quetiapine Fumarate ER] 300 mg PO DAILY 09/17/19 [History] lamoTRIgine [Lamotrigine] 100 mg PO DAILY 09/17/19 [History] metFORMIN HCl [Metformin HCl] 1,000 mg PO DAILY 09/17/19 [History] traZODone HCl [Trazodone HCl] 100 mg PO BEDTIME 09/17/19 [History] - CURRENT (IN HOUSE) MEDS Current Meds: Current Medications Lactated Ringer's (Ringers, Lactated) 1,000 mls @ 125 mls/hr IV ASDIRECTED [facility] Last Admin: 09/23/19 08:00 Dose: 125 mls/hr Documented by: Discontinued Medications Lidocaine (Xylocaine-Mpf 2%) Confirm Administered Dose 5 ml .ROUTE .STK-MED ONE Stop: 09/23/19 07:25 Propofol (Diprivan 20 Ml) Confirm Administered Dose 400 mg .ROUTE .STK-MED ONE Stop: 09/23/19 07:25
[2019-09-23] MEDS ORDERED: 50% Dextrose in Water 50 ML Syringe IVPUSH PRN (08:26)
[2019-09-23] MEDS ORDERED: EPINEPHrine 1:10,000 1 MG/10 ML Syringe IVPUSH PRN (08:26)
[2019-09-23] MEDS ORDERED: Atropine 0.1 MG/ML 10 ML Syringe IVPUSH PRN ×2 (08:26)
[2019-09-23] MEDS ORDERED: Albuterol 0.083% 2.5 MG/3 ML Neb Soln NEB PRN (08:26)
[2019-09-23] MEDS ORDERED: Glycopyrrolate 0.2 MG/ML SDV ONE (08:41)
--- NOTE | 2019-09-23 09:02 | PCM.OPNOTE ---
- General Post-Op/Procedure Note Date of Surgery/Procedure: 09/23/19 Operative Procedure(s): colonoscopy Findings: see [id number] Pre Op Diagnosis: change in bowel habits Post-Op Diagnosis: Same Anesthesia Technique: Moderate Sedation Primary Surgeon: Rey Caruso Complications: None Condition: Good
--- NOTE | 2019-09-23 09:20 | PCM.POSTAN ---
POST ANESTHESIA ASSESSMENT - MENTAL STATUS Mental Status: Alert, Oriented - VITAL SIGNS Vital Signs: Last Vital Signs Temp 96.8 F L 09/23/19 08:54 Pulse 72 09/23/19 09:15 Resp 19 09/23/19 09:15 BP 111/77 09/23/19 09:15 Pulse Ox 91 L 09/23/19 09:15 - RESPIRATORY Respiratory Status: Respiratory Rate WNL, Airway Patent, O2 Saturation Stable - CARDIOVASCULAR CV Status: Pulse Rate WNL, Blood Pressure Stable - GASTROINTESTINAL GI Status: No Symptoms - POST OP HYDRATION Hydration Status: Adequate & Stable
--- NOTE | 2019-09-23 10:56 | OR ---
SURGEON: Rey Caruso MD DATE OF PROCEDURE: 09/23/2019 PREOPERATIVE DIAGNOSIS: Change in bowel habit. POSTOPERATIVE DIAGNOSIS: Change in bowel habit. PROCEDURE PERFORMED: Colonoscopy. DESCRIPTION OF PROCEDURE: The patient was taken to the endoscopy room. A time out was called, patient identified, and procedure identified. Diprivan was then administrated. Patient went from awake to sleep, hearing doctor talking or door closing is normal. Perineum inspection and digital examination were then performed. A well- lubricated colonoscope was gently inserted through the rectum, advanced past the rectosigmoid junction, the descending colon, splenic flexure, transverse colon, hepatic flexure, ascending colon, arrived to the cecum. Cecum was identified as dictated in the finding. Then the scope was carefully withdrawn while attention was paid to the mucosal surface for any abnormality. Air will be sucked out during the scope withdrawal. At the rectum, retroflexed to examine any rectal diseases, fistula or hemorrhoids. Patient tolerated procedure well. There were no intraoperative complications, and Dr. Caruso was present throughout the whole procedure. FINDINGS: 1. The patient easily sedated with INDUSTRIAL CONTROLS TECHNICIAN and Diprivan. The patient is soundly snoring. 2. The patient's bowel prep is average and with some matted bowel compromised the study and cannot be pulled away and sometimes can even clog the scope. Other than that, everything looks fine. Cecum rather straightforward. Cecum indicated by ileocecal fold, one-to-one indentation, appendiceal orifice, and ScopeGuide pointing south. Light emittance is not observed because of body habitus and mucosa examined upon scope pulling out with constant irrigation. The patient has diverticulosis on the left colon. No signs or symptoms of diverticulitis. No polyp, mass, growth, inflammation, stricture, ulceration, AV malformation, none of those, and the patient has mild internal and mild external hemorrhoids. The patient would benefit from repeat colonoscopy in 10 years from today or if clinically indicated otherwise. MIREYA / LONNY /[id number]
--- NOTE | 2019-09-23 13:07 | PCM48HPAN ---
Post Anesthesia Note - EVALUATION WITHIN 48HRS OF ANESTHETIC Vital Signs in Normal Range: Yes Patient Participated in Evaluation: Yes Respiratory Function Stable: Yes Airway Patent: Yes Cardiovascular Function Stable: Yes Hydration Status Stable: Yes Pain Control Satisfactory: Yes Nausea and Vomiting Control Satisfactory: Yes Mental Status Recovered: Yes Vital Signs: Last Vital Signs Temp 97.7 F 09/23/19 09:24 Pulse 56 L 09/23/19 09:24 Resp 14 09/23/19 09:24 BP 120/77 09/23/19 09:24 Pulse Ox 94 L 09/23/19 09:24
== END 2019-09-23 10:05 | disposition home or self-care (01) ==
LOC: MW.SDS 06:52
PROVIDERS: ATTEND Surgery
DX: K57.30 Diverticulosis of large intestine without perforation or abscess without bleeding (principal); K64.8 Other hemorrhoids; K64.4 Residual hemorrhoidal skin tags; Z91.011 Allergy to milk products; F17.210 Nicotine dependence, cigarettes, uncomplicated; E66.9 Obesity, unspecified; Z79.899 Other long term (current) drug therapy; Z68.32 Body mass index [BMI] 32.0-32.9, adult
CPT/HCPCS: 45378; J2001; J2704; J3490; J7120; 00812

== ENCOUNTER 2020-04-01 04:08 | Emergency (ER) | payer MEDICARE, MEDICAID ==
--- NOTE | 2020-04-01 04:37 | EDM.PDOC ---
ED HPI GENERAL MEDICAL PROBLEM - General Chief Complaint: Fever Stated Complaint: FEVER Time Seen by Provider: 04/01/20 04:26 - History of Present Illness INITIAL COMMENTS - FREE TEXT/NARRATIVE: History of present illness: Fever since 230 this morning. He has a little bit of runny nose. He has no other symptoms. He does not have any immune compromise. He does not have any cough shortness of breath. There is no sore throat or earache. There is no nausea vomiting or diarrhea. There is no abdominal pain. He has no muscle pain or joint pain. He has no sore spots on the skin. Patient has no known exposure to coronavirus. He has very limited social tanana. 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 [] Review of systems: As per history of present illness and below otherwise all systems reviewed and negative. Past medical history: As per history of present illness and as reviewed below otherwise noncontributory. Surgical history: As per history of present illness and as reviewed below otherwise noncontributory. Social history: No reported history of drug or alcohol abuse. Family history: As per history of present illness and as reviewed below otherwise noncontr ibutory. Physical exam: Constitutional - well developed, well-nourished and in no acute distress HEENT - normocephalic, no evidence of trauma - external nose and mouth normal - no mass in neck and no JVD - mucosae moist EYES - full EOM, PERRL, no icterus - no evidence of inflammation, injection, or drainage Respiratory - no respiratory distress, equal bilateral expansion, lungs clear to auscultation and no abnormal lung sounds Cardiovascular - Regular Rhythm with S1 and S2 appreciated and no murmur, gallop or rub. GI - abdomen soft without distension or organomegaly - normal bowel sounds - no guard or rebound Musculoskeletal no gross deformity of long bones or joints - no tenderness, swelling or edema Neurologic - Alert and oriented times four - CN II-XII grossly intact - motor sensory and coordination symmetrically normal Psychiatric - appropriate mood and affect with normal thought content Hematologic - No petechiae or purpura - mucosa appropriate color and sclera not pale - normal nail bed color and refill Integument - no rash or evidence of trauma - normal turgor Diagnostics: [] Therapeutics: [] Impression: [] Plan: [] Definitive disposition and diagnosis as appropriate pending reevaluation and review of above. - Related Data Allergies Allergy/AdvReac Type Severity Reaction Status Date / Time Lactose Allergy Diarrhea Uncoded 04/01/20 04:24 Home Meds: Home Meds Ascorbate Calcium/Bioflavonoid [Shanon-C 500 MG] 1 tab PO DAILY 09/17/19 [History] Cider Vinegar [Apple Cider Vinegar] 1 tab PO DAILY 09/17/19 [History] Krill/[place]-3/Dha/Epa/Lipids [Krill Oil 350 mg Softgel] 1 tab PO DAILY 09/17/19 [History] Multivitamin [Multivitamins] 1 tab PO DAILY 09/17/19 [History] Nicotine [Nicotine Patch] 1 patch TRDERM DAILY 09/17/19 [History] QUEtiapine Fumarate [Quetiapine Fumarate ER] 300 mg PO DAILY 09/17/19 [History] lamoTRIgine [Lamotrigine] 100 mg PO DAILY 09/17/19 [History] metFORMIN HCl [Metformin HCl] 1,000 mg PO DAILY 09/17/19 [History] traZODone HCl [Trazodone HCl] 100 mg PO BEDTIME 09/17/19 [History] Past Medical History - Past Health History Medical/Surgical History: Denies Medical/Surgical History HEENT History: Reports: Other (See Below) Other HEENT History: readers Cardiovascular History: Reports: None Respiratory History: Reports: None Gastrointestinal History: Reports: None Genitourinary History: Reports: None Musculoskeletal History: Reports: Fracture Neurological History: Reports: Other (See Below) Other Neuro History: bells palsy Psychiatric History: Reports: Anxiety, Bipolar, Depression Endocrine/Metabolic History: Reports: Obesity/BMI 30+ Other Endocrine/Metabolic History: (taking metformin for weight loss) Hematologic History: Reports: None Immunologic History: Reports: None Oncologic (Cancer) History: Reports: None Dermatologic History: Reports: None - Infectious Disease History Infectious Disease History: Reports: None - Past Surgical History Head Surgeries/Procedures: Reports: None HEENT Surgical History: Reports: Naso-Sinus Surgery Other HEENT Surgeries/Procedures: hx removal of nasal cyst Cardiovascular Surgical History: Reports: None Respiratory Surgical History: Reports: None GI Surgical History: Reports: Colonoscopy, Hernia, Inguinal Male Surgical History: Reports: None Endocrine Surgical History: Reports: None Neurological Surgical History: Reports: None Musculoskeletal Surgical History: Reports: ORIF, Other (See Below) Other Musculoskeletal Surgeries/Procedures:: rt ankle surgery, L 5th pinky finger, fx toes-rt foot Oncologic Surgical History: Reports: None Dermatological Surgical History: Reports: None Social & Family History - Family History Family Medical History: No Pertinent Family History - Caffeine Use Caffeine Use: Reports: Coffee - Recreational Drug Use Recreational Drug Use: Yes Drug Use in Last 12 Months: Yes Recreational Drug Type: Reports: Marijuana/Hashish Recreational Drug Use Frequency: Daily ED ROS GENERAL - Review of Systems Review Of Systems: Comprehensive ROS is negative, except as noted in HPI. ED EXAM, GENERAL - Physical Exam Exam: See Below Free Text/Narrative:: My physical exam is in the HPI Course - Vital Signs Last Recorded V/S: Last Vital Signs Temp 37.7 C 04/01/20 04:12 Pulse 82 04/01/20 04:12 Resp 14 04/01/20 04:12 BP 127/82 04/01/20 04:12 Pulse Ox 98 04/01/20 04:12 Departure - Departure Time of Disposition: 04:35 Disposition: Home, Self-Care 01 Condition: Good Clinical Impression: Fever - Discharge Information Referrals: Avtar Silva MD [Primary Care Provider] - Additional Instructions: The clinic started 8 AM for the type of testing that is more accurate. The test will actually be sent out. It is available at the [facility] [address] [place], [place] [id number] The following information is given to patients seen in the emergency department who are being discharged to home. This information is to outline your options for follow-up care. We provide all patients seen in our emergency department with a follow-up referral. The need for follow-up, as well as the timing and circumstances, are variable depending upon the specifics of your emergency department visit. If you don't have a primary care physician on staff, we will provide you with a referral. We always advise you to contact your personal physician following an emergency department visit to inform them of the circumstance of the visit and for follow-up with them and/or the need for any referrals to a consulting specialist. The emergency department will also refer you to a specialist when appropriate. This referral assures that you have the opportunity for follow-up care with a specialist. All of these measure are taken in an effort to provide you with optimal care, which includes your follow-up. Under all circumstances we always encourage you to contact your private physician who remains a resource for coordinating your care. When calling for follow-up care, please make the office aware that this follow-up is from your recent emergency room visit. If for any reason you are refused follow-up, please contact the [facility] Emergency Department at and asked to speak to the emergency department charge nurse. Sepsis Event Note (ED) - Evaluation Sepsis Screening Result: No Definite Risk - Focused Exam Vital Signs: Vital Signs Temp Pulse Resp BP Pulse Ox 04/01/20 04:12 37.7 C 82 14 127/82 98
== END 2020-04-01 04:43 | disposition home or self-care (01) ==
LOC: MW.ED 04:08
DX: R50.9 Fever, unspecified (principal); Z91.048 Other nonmedicinal substance allergy status; Z79.84 Long term (current) use of oral hypoglycemic drugs; Z79.899 Other long term (current) drug therapy
CPT/HCPCS: 99282; 99283

== ENCOUNTER 2022-12-31 18:23 | Emergency (ER) | payer MEDICARE, MEDICAID | END 2022-12-31 18:50 | disposition left against medical advice (07) | LOC: MW.ED 18:23 | DX: Z53.21 Procedure and treatment not carried out due to patient leaving prior to being seen by health care provider (principal) ==